=== PATIENT | male | born 1960 | race Caucasian/White ===

== ENCOUNTER 2016-05-29 08:55 | Emergency (ER) | payer BC ==
[2016-05-29 09:01] VITALS: BP 130/79; PULSE 86; RESP 20; TEMP 97.8
[2016-05-29] MEDS ORDERED: PROPARACAINE 0.5% OPHTH DROPS 15 ML BTL RIGHT EYE STA (09:08)
[2016-05-29] MEDS ORDERED: TOBRAMYCIN 0.3% OPHTH DROPS 5 ML BTL RIGHT EYE STA (09:08)
--- NOTE | 2016-05-29 09:11 | ED ---
Eye Problem HPI - General Chief complaint: Eye Problems Stated complaint: swollen eye Time Seen by Provider: 05/29/16 09:05 Source: patient, RN notes reviewed Mode of arrival: ambulatory Limitations: no limitations - History of Present Illness Initial comments: 56-year-old male presents emergency Department chief complaint right eye irritation. Patient states that he had some irritation yesterday noticed that the right lower lateral aspect there is some redness lower lid. Patient states he feels like there is some foreign body. He states that he woke up today who checked it and was much worse. Patient denies any visual changes. Patient states he does wear reading glasses. Patient denies any headache, dizziness. Denies any purulent drainage or tearing of his eyes. Denies any photophobia. Denies any visual floaters. - Related Data Home Medications Medication Instructions Recorded Confirmed Colchicine [Colcrys] 0.6 mg PO DAILY PRN 02/22/14 02/22/14 Ezetimibe/Simvastatin [Vytorin 1 each PO HS 02/22/14 02/22/14 10-40 mg Tablet] Multivitamin [Men's Multi-Vitamin] 2 each PO DAILY 02/22/14 02/22/14 Previous Rx's Medication Instructions Recorded Tobramycin [Tobrex 0.3% Ophth Soln] 1 drop RIGHT EYE Q4HR #5 ml 05/29/16 Allergies Allergy/AdvReac Type Severity Reaction Status Date / Time No Known Allergies Allergy Verified 05/29/16 09:01 Review of Systems ROS Statement: Those systems with pertinent positive or pertinent negative responses have been documented in the HPI. ROS Other: All systems not noted in ROS Statement are negative. Past Medical History Past Medical History: Hyperlipidemia Additional Past Medical History / Comment(s): GOUT History of Any Multi-Drug Resistant Organisms: None Reported Past Surgical History: Adenoidectomy, Tonsillectomy Additional Past Surgical History / Comment(s): NASAL SURGERY Past Anesthesia/Blood Transfusion Reactions: Motion Sickness Past Psychological History: No Psychological Hx Reported Smoking Status: Former smoker Past Alcohol Use History: Rare Additional Past Alcohol Use History / Comment(s): STARTED SMOKING AT AGE 15- SMOKED 1/2 PPD, QUIT 2008, DRINKS OCC. Past Drug Use History: None Reported - Past Family History Father Additional Family Medical History / Comment(s): HX UNK Mother Additional Family Medical History / Comment(s): NI HX KNOWN General Exam Limitations: no limitations General appearance: alert, in no apparent distress Head exam: Present: atraumatic, normocephalic, normal inspection Eye exam: Present: normal appearance, PERRL, EOMI, other (Right eye lower lateral eyelid there is an ulcerated erythematous region which appears to be horduleum, Wood's lamp and fluorescein dye were used to evaluate the right eye there is no corneal abrasion). Absent: scleral icterus, conjunctival injection , periorbital swelling ENT exam: Present: normal exam, normal oropharynx, mucous membranes moist, TM's normal bilaterally, normal external ear exam Respiratory exam: Present: normal lung sounds bilaterally. Absent: respiratory distress, wheezes, rales, rhonchi, stridor Cardiovascular Exam: Present: regular rate, normal rhythm, normal heart sounds. Absent: systolic murmur, diastolic murmur, rubs, gallop, clicks Course Vital Signs 05/29/16 09:00 Temperature 97.8 F Pulse Rate 86 Respiratory 20 Rate Blood Pressure 130/79 O2 Sat by Pulse 98 Oximetry Medical Decision Making - Medical Decision Making 56-year-old male present emergency department for right eye irritation. Patient has an internal stye. Patient will be given Tobrex eye drops. Patient follow-up with [facility] if needed. Return parameters were discussed. Disposition Clinical Impression: Internal hordeolum of right eye Disposition: HOME SELF-CARE Condition: Stable Instructions: Briseida (ED) Additional Instructions: Please return to the Emergency Department if symptoms worsen or any other concerns. Prescriptions: Tobramycin [Tobrex 0.3% Ophth Soln] 1 drop RIGHT EYE Q4HR #5 ml Referrals: Nonstaff,Physician [Primary Care Provider] - 1-2 days Shawn Guerra MD [STAFF PHYSICIAN] - 1-2 days
== END 2016-05-29 09:37 | disposition home or self-care (01) ==
LOC: EC 08:55
DX: H00.022 Hordeolum internum right lower eyelid (principal); M10.9 Gout, unspecified; E78.5 Hyperlipidemia, unspecified; Z87.891 Personal history of nicotine dependence; Z79.899 Other long term (current) drug therapy
CPT/HCPCS: 99283